=== PATIENT | male | born 2000 | race Asian ===

== ENCOUNTER 2021-10-03 10:10 | Day surgery (SDC) | payer MEDICAID ==
[~2021-10-03] VITALS: Ht 162.6 cm; Wt 72.6 kg
[2021-10-03] MEDS ORDERED: MIDAZOLAM 5 MG/5 ML VIAL ONE (12:47)
[2021-10-03] MEDS ORDERED: fentaNYL citrate 0.05 MG/ML VIAL ONE (12:47)
[2021-10-03] MEDS ORDERED: LIDOCAINE 2% 100 MG/5 ML UJET TP ONE (12:47)
== END 2021-10-03 13:54 | disposition home or self-care (01) ==
LOC: MDS 10:10 → MMU 10:11 → MDS 13:54
PROVIDERS: ATTEND Internal Medicine Gastroenterology
DX: K62.5 Hemorrhage of anus and rectum (principal); Z79.899 Other long term (current) drug therapy; Z20.822 Contact with and (suspected) exposure to COVID-19
CPT/HCPCS: 45378; 87426; J3010; J2250